=== PATIENT | male | born 1960 | race Caucasian/White ===

== ENCOUNTER → 2017-12-17 | Outpatient (CLI) | payer BC | END | disposition home or self-care (01) | LOC: C.PATHSPEC 16:51 | PROVIDERS: ATTEND Physician Assistant | DX: L82.1 Other seborrheic keratosis (principal); L57.0 Actinic keratosis ==

== ENCOUNTER 2019-03-26 04:59 | Inpatient (IN) ==
--- NOTE | 2019-03-08 09:36 | PAT Medication Instructions ---
Medication Instructions Date of Service March 08, 2019 Home Medications atorvastatin 20 mg tablet 20 mg PO QAM lisinopril 20 mg PO QAM DO NOT take the morning of surgery lisinopril 20 mg PO QAM Take morning of surgery With a small sip of water, OTHERWISE NOTHING TO EAT OR DRINK AFTER MIDNIGHT: atorvastatin 20 mg tablet 20 mg PO QAM Other Notes If you have any questions please call us at [phone] or [phone] or [phone] or [phone]
--- NOTE | 2019-03-08 13:08 | Anesthesiology Consultation ---
Date of Service March 08, 2019 Assessment & Plan (1) Encounter for pre-operative examination: Chart Review Chart Review: Acceptable Risk for Surgery and Patient seen in Pre Admission Testing Teaching & Discussion Pre-Anesthesia Teaching/Discussion Notes: Instructed NPO after midnight before surgery,except medications with 15 cc of water. Medication instructions provided according to the PAT guidelines. History Surgery Operation Date: 03/26/19 12:50 Proposed Procedures p Left Anterior Total Hip Arthroplasty - Jonas Fry, Height/Weight Height: 5 ft 6 in Weight: 106.7 kg Allergies Allergy/AdvReac Type Severity Reaction Status Date / Time No Known Allergies Allergy Unverified 03/08/19 07:04 Medications Home Medications Medication Instructions Recorded Confirmed Last Taken atorvastatin 20 mg tablet 20 mg PO QAM #1 tab 03/05/19 03/08/19 Unknown lisinopril 20 mg PO QAM 03/08/19 03/08/19 Unknown Past Medical History Medical History Hyperlipidemia Dermatofibroma BCC (basal cell carcinoma) S/P MOH'S SURGERY Obesity Osteoarthritis HTN (hypertension) Exercise / Class Metabolic Activity III < 4 Walking/Shop/Light housework Past Family History Family History Father Family history of diabetes mellitus Past Surgical History Surgical History History of cardiac cath 10+ YEARS AGO= NO STENTS History of tonsillectomy S/P Mohs surgery for basal cell carcinoma Past Anesthesia History No Hx of Anesthesia Complications and No Family Hx of Anesthesia Complications History of PONV No Hx of PONV and No Hx of Motion Sickness Social History Smoking Status: Never smoker Do You Dip or Chew Tobacco: No Hx Alcohol Use: Yes Alcohol type: beer alcohol intake frequency: a few times a week Hx Substance Use: No substance use type: does not use Review of Systems Patient denies chest pain, shortness of breath, reflux, cough, wheezing, palpita tions. Physical Exam Vital Signs VITALS BP 124/87 P 92 TEMP 97.4 SP02 94%RA RESP 16 PHYSICAL Full neck and c-spine range of motion. Full TMJ range of motion. TMD 3 finger breaths Mallampati Score 3 Dentition: intact, lower front permanent bridge, several crowns Lungs: clear throughout to auscultation Cardiac: regular rate and rhythm, no murmurs noted Spine: normal Carotid arteries: negative bruit Extremities: no edema Testing Laboratory Results 03/08/19 13:26 03/08/19 13:26 03/08/19 03/08/19 13:26 13:26 PT 9.9 INR 1.0 APTT 28.0 Blood Type A Positive Antibody Screen NEGATIVE Electrocardiogram Date: 03/08/19 SR with marked sinus arrhythmia at 77bpm. iRBBB. NS TWA. TWI no longer evident in anterior leads per cardio. Chest X-Ray Date: 03/08/19 Findings: + NAD Cardiac Catheterization Date: 08/20/15 No significant disease of the [place] coronary arteries. EF 76%. No contraction abnormalities noted on left vetriculogram. No aortic stenosis.
--- NOTE | 2019-03-08 13:46 | XRay Report ---
XR chest Pre-admission PA/Lat CLINICAL HISTORY: pat preoperative evaluation COMPARISON STUDY: No previous studies for comparison. FINDINGS: The bones soft tissues and hemidiaphragms are normal. The cardiomediastinal silhouette is n ormal. The lungs are clear. The pulmonary vasculature is normal. IMPRESSION: Negative chest. The above report was generated using voice recognition software. It may contain grammatical, syntax or spelling errors. Electronically signed by: Jarret Martinez M.D. 03/08/2019 1:45 PM
[2019-03-08 16:30] LABS: Basophils # (auto) 0.03 K/uL (0-0.2); Basophils % (auto) 0.3 %; Eosinophils # (auto) 0.15 K/uL (0-0.5); Eosinophils % (auto) 1.5 %; Hematocrit (blood only) 41.2 % (42-52); Hemoglobin 14.7 g/dL (14.0-18.0); Immature Granulocytes # (auto) 0.05 K/uL (0.00-0.02); Immature Granulocytes % (auto) 0.5 %; Lymphocytes # (auto) 2.55 K/uL (1.2-3.4); Lymphocytes % (auto) 25.8 %; Mean Corpuscular Hgb Conc 35.7 g/dL (32-36); Mean Corpuscular Volume 87.3 fL (80-100); Mean Platelet Volume 8.9 fL (7.4-10.4); Monocytes # (auto) 0.85 K/uL (0.11-0.59); Monocytes % (auto) 8.6 %; Neutrophils # (auto) 6.26 K/uL (1.4-6.5); Neutrophils % (auto) 63.3 %; Platelet Count 318 K/uL (130-400); RDW Coefficient of Variation 13.5 % (11.5-14.5); RDW Standard Deviation 43.6 fL (36.4-46.3); Red Blood Count 4.72 M/uL (4.7-6.1); White Blood Count 9.89 K/uL (4.8-10.8)
[2019-03-08 16:39] LABS: BUN Creatinine Ratio 14.8 (10-20); Calcium 9.3 mg/dl (8.5-10.1); Creatinine Clr Calc Pharmacy 82.5 ml/min; Est GFR (African American) 85.1; Est GFR (Non-African American) 73.4; Potassium 3.9 mmol/L (3.5-5.1)
[2019-03-08 16:43] LABS: Prothrombin Time 9.9 Seconds (9.0-12.0)
--- NOTE | 2019-03-24 07:28 | History & Physical Report ---
Date of Service March 24, 2019 Assessment & Plan (1) Osteoarthritis of left hip: We will proceed with a left anterior total hip arthroplasty. Postoperatively he will be started on aspirin for DVT prophylaxis. We will keep him overnight in the hospital for postoperative medical management. He plans to use energy physical therapy upon discharge. Present on Admission?: Yes History of Present Illness Chief Complaint: Primary osteoarthritis of the left hip Primary Care Provider: MARIKA Blanchard Luciano is a pleasant 59-year-old male with a several year history of increasing left hip and groin pain. Over the past 4 months it is gotten considerably worse. He has difficulty bending over at times and putting on shoes and going up and down stairs. X-rays and clinical examination have been diagnostic for primary osteoarthritis of the left hip. After failing conservative treatment, he has elected proceed with a left anterior total hip arthroplasty. Allergies Allergy/AdvReac Type Severity Reaction Status Date / Time No Known Allergies Allergy Unverified 03/08/19 07:04 Home Medications Home Medications Medication Instructions Recorded Confirmed Type atorvastatin 20 mg tablet 20 mg PO QAM #1 tab 03/05/19 03/08/19 History lisinopril 20 mg PO QAM 03/08/19 03/08/19 History Past Med/Surg History Medical History Hyperlipidemia Dermatofibroma BCC (basal cell carcinoma) S/P MOH'S SURGERY Obesity Osteoarthritis HTN (hypertension) Surgical History History of cardiac cath 10+ YEARS AGO= NO STENTS History of tonsillectomy S/P Mohs surgery for basal cell carcinoma Family History Father Family history of diabetes mellitus Social History Preferred Language: German Communication Ability: Effective Wel[employer] Tungsten Arc Required: No Beliefs That Will Affect Care: None marital status: Current Living Situation: Family current occupational status: employed Other Information That Helps Us Care for You: No Feels Safe at Home: Yes Safety Concerns: Feels Safe At This Time Smoking Status: Never smoker Do You Dip or Chew Tobacco: No Second Hand Exposure: No Tobacco Cessation Education Requested by Patient: No Hx Alcohol Use: Yes Alcohol type: beer Hx Substance Use: No Review of Systems All systems reviewed & are unremarkable except as noted in HPI & below Physical Exam Constitutional: WD/WN, vitals as above Eyes: PERRL, conjunctivae normal, anicteric sclerae ENMT: external ear and nose normal, oropharynx normal Neck: trachea midline, no thyromegaly Respiratory: normal respiratory effort Cardiovascular: RRR, no murmur, no edema Gastrointestinal (Abdomen): normal bowel sounds, soft, nontender, no hepatosplenomegaly Musculoskeletal: Physical examination of the left hip reveals decreased range of motion with flexion, internal and external rotation. There is significant groin pain with forced internal rotation of the hip his leg lengths are essentially equal. Psychiatric: A+Ox3, euthymic affect Results & Data Diagnostic Findings Radiographs of the left hip and pelvis demonstrate advanced osteoarthritis with joint space narrowing osteophyte formation and [id number] articulation.
[2019-03-26] MEDS ORDERED: GABAPENTIN 300 MG x 2 PO SCH (06:00)
[2019-03-26] MEDS ORDERED: ROPIVACAINE 0.5% HCL/PF 150 MG, BUPIVACAINE 0.5% MPF 30 ML, EPINEPHrine 30MG/30ML (OR U... INFIL SCH (06:00)
[2019-03-26] MEDS ORDERED: LR 500ML BOLUS, THEN 15ML/HR IV SCH (06:00)
[2019-03-26] MEDS ORDERED: LR 60ML/HR IV SCH (06:00)
[2019-03-26] MEDS ORDERED: TRANEXAMIC ACID 1,000 MG **IV Pre-op IV SCH (06:00)
[2019-03-26] MEDS ORDERED: ACETAMINOPHEN 500 MG TAB PO SCH (06:00)
[2019-03-26] MEDS ORDERED: FAMOTIDINE 20 MG TAB PO SCH (06:00)
[2019-03-26] MEDS ORDERED: CEFAZOLIN 2000MG 2,000 MG/15 ML SYR IV SCH (06:00)
[2019-03-26] MEDS ORDERED: ORTHO JOINT ANESTHETIC ONE (06:27)
[2019-03-26] MEDS ORDERED: POVIDONE-IODINE OP SOLN 30 ML BTL ONE (06:28)
[2019-03-26] MEDS ORDERED: TRANEXAMIC ACID 1,000 MG **IV Intra-op IV SCH (06:30)
[2019-03-26] MEDS ORDERED: BUPIVACAINE 0.5 % 5 MG/1 ML PF 10ML VIAL ONE (06:31)
[2019-03-26] MEDS ORDERED: fentaNYL citrate 100 MCG/2 ML VIAL ONE (06:37)
[2019-03-26] MEDS ORDERED: MIDAZOLAM HCL 1 MG/ML 2ML VIAL ONE (06:37)
--- NOTE | 2019-03-26 06:40 | History & Physical Bridge Note ---
Date of Service March 26, 2019 History & Physical Bridge Note I have examined the patient, reviewed the History & Physical and in the interval since the performance of the History & Physical I have noted the following changes of clinical significance: no changes noted
[2019-03-26] MEDS ORDERED: ePHEDrine sulfate 50 MG/ML AMP IV PRN (07:26)
[2019-03-26] MEDS ORDERED: ATROPINE SULFATE 0.1 MG/ML 10ML SYR IV PRN (07:26)
[2019-03-26] MEDS ORDERED: HYDROmorphone INJ 1 MG/ML SYRINGE IV PRN (07:26)
[2019-03-26] MEDS ORDERED: PHENYLEPHRINE 100MCG/ML 5ML SYR ONE (07:36)
[2019-03-26] MEDS ORDERED: ePHEDrine sulfate 50 MG/ML SYR ONE (07:36)
[2019-03-26] MEDS ORDERED: LIDOCAINE HCL 2% 2 ML VIAL/AMP(20MG/ML) INFIL ONE (07:36)
[2019-03-26] MEDS ORDERED: PROPOFOL IV EMULSION 10 MG/ML 20 ML VIAL IV ONE ×3 (07:36→08:41)
--- NOTE | 2019-03-26 08:38 | Operative Report ---
Post Operative Report Pre & Post Diagnosis Operation Date: 03/26/19 07:00 Pre-Op Diagnosis: LEFT HIP DEGENERATIVE JOINT DISEASE Post-Op Diagnosis: LEFT HIP DEGENERATIVE JOINT DISEASE Procedure Operation Date: 03/26/19 07:00 Actual Procedures p Left Anterior Total Hip Arthroplasty(Left) - Jonas Fry DO Surgeon Jonas Fry DO Fire Adjuster Jonas Richards PAC Estimated Blood Loss 250 Findings Consistent with Post-Op Diagnosis Specimens Left femoral head Complications none Disposition Disposition: Recovery Room Indications Luciano is a pleasant 59-year-old male who presented my office with complaints of chronic increasing left hip and groin pain. X-rays and clinical examination were diagnostic for primary osteoarthritis of the left hip. After failing conservative treatment, he elected proceed with a left anterior total hip arthroplasty. Description of Procedure Implants used Biomet Taperloc total hip arthroplasty system with a size 11 standard offset Taperloc stem, a 56 mm G7 cup with a 25mm screw, an E1 polyethylene liner, a 40 mm ceramic head with a -3 neck. Patient arrived at the hospital for the above procedure. They were seen in the preoperative holding area and the operative extremity was identified and signed. They were given a spinal anesthetic. They were given a preoperative antibiotic and TXA. They were taken back To the operating room and laid on the table in the supine position. The leg was brought out through a Puristst leg positioner. The hip was then prepped and draped in sterile fashion. A timeout was done and the patient in upper extremities properly identified. An anterior approach was used. Dissection was taken down through the fascia and the tensor muscle belly was retracted laterally and the rectus was retracted medially. The circumflex vessels were identified and ligated. The capsule was then incised and tagged for later repair. The femoral neck was then cut and the femoral head was removed. The acetabulum was exposed. Time was spent doing a complete circumferential labral release. Sequential reaming of the acetabulum up to a size 55 reamer was done. Final reamings were done under fluoroscopy to ensure appropriate version. A Biomet 56 mm G7 cup was then impacted into place. A single 25 mm screw was placed. The E1 polyethylene liner was then snapped into place. Surrounding soft tissues were then injected with 100 cc of an orthopedic pain control cocktail. The proximal femur was then exposed. Sequential broaching up to a size 11 broach was done. Off that broach a size 40 head with a -3 neck was trialed. The hip was reduced and fluoroscopic images showed anatomic alignment of the implants in acceptable length. The broach was removed. The final size 11 standard offset Taperloc stem was then impacted into place. A ceramic 40 mm head with a -3 neck was then impacted into place in the hip was reduced. Final fluoroscopic images showed anatomic reduction of the hip. The capsule was then closed with #1 Vicryl suture. A dilute betadyne lavage was then done for 3 minutes. The joint was then irrigated with normal saline solution. The fascia was closed with #1 PDS suture. Skin was closed with 2-0 Vicryl, nicola, and a Elda VAC dressing. The patient was then transferred to a hospital bed and taken to the post anesthesia care unit in stable condition. They tolerated the procedure well. I attest to the content of the Intraoperative Record and any orders documented therein. Any exceptions are noted below.
--- NOTE | 2019-03-26 09:07 | Fluoroscopy Report ---
FL hip LT 1V CLINICAL HISTORY: LEFT ANTERIOR HIP COMPARISON STUDY: Pelvis and hips 02/04/2019. FLUOROSCOPY TIME: 40 seconds. FINDINGS: 3 fluoroscopic spot images demonstrate a left total hip arthroplasty. The hardware appears intact. No fracture or dislocation. IMPRESSION: Fluoroscopy provided for left total hip arthroplasty. Electronically signed by: Karl Ac M.D. 03/26/2019 9:06 AM
--- NOTE | 2019-03-26 09:21 | XRay Report ---
AP PELVIS, CROSSTABLE LATERAL LEFT HIP History: Left total hip arthroplasty. Degenerative arthritis. Postop. FINDINGS: The patient is status post a left total hip arthroplasty. The hardware is intact. No fractu re or dislocation. Skin nicola are in place. IMPRESSION: Left total hip arthroplasty. No evidence for hardware complication. Electronically signed by: Karl Ac M.D. 03/26/2019 9:20 AM
[2019-03-26] MEDS ORDERED: MAGNESIUM HYDROXIDE SUSP 30 ML UDC PO PRN (09:37)
[2019-03-26] MEDS ORDERED: BISACODYL 10 MG SUPP PR PRN (09:37)
[2019-03-26] MEDS ORDERED: NALOXONE HCL 0.4 MG/1 ML VIAL/CARP IV PRN (09:37)
[2019-03-26] MEDS ORDERED: ONDANSETRON INJ 2 MG/ML 2 ML VIAL IV PRN (09:37)
[2019-03-26] MEDS ORDERED: METOCLOPRAMIDE HCL INJ 5 MG/ML 2 ML VIAL IV PRN (09:37)
[2019-03-26] MEDS ORDERED: HYDROmorphone INJ 0.5 MG/0.5 ML SYR IV PRN (09:37)
[2019-03-26] MEDS: OXYCODONE HCL IR 5 MG TAB (IMMEDIATE RELEASE) PO PRN ×3 (09:56→19:34)
[2019-03-26] MEDS: SODIUM CHLORIDE 0.9% 1000ML 1,000 ML IV SCH ×2 (10:43→19:31)
[2019-03-26] MEDS ORDERED: ATORVASTATIN 20 MG TAB PO SCH (11:00)
[2019-03-26] MEDS: DOCUSATE SODIUM 100 MG CAP PO SCH ×2 (11:15→20:59)
[2019-03-26] MEDS: ASPIRIN 81 MG ECTAB PO SCH ×2 (11:16→20:59)
[2019-03-26] MEDS: MULTIVITAMIN TAB PO SCH (11:16)
[2019-03-26] MEDS: LISINOPRIL 20 MG TAB PO SCH (11:18)
[2019-03-26] MEDS: KETOROLAC 30 MG/ML VIAL IV SCH ×2 (11:18→17:04)
[2019-03-26] MEDS: ACETAMINOPHEN 500 MG TAB PO SCH ×2 (13:35→21:00)
--- NOTE | 2019-03-26 14:08 | Anesthesiology Progress Note ---
Date of Service March 26, 2019 Anesthesia Post Procedure Vital Signs Vital Signs: Temp Pulse Pulse Resp BP Pulse Ox 03/26/19 12:30 87 18 111/72 95 03/26/19 11:26 79 18 95 03/26/19 11:17 118/73 03/26/19 10:32 85 18 111/71 95 03/26/19 09:59 36.5 C 69 18 107/68 96 03/26/19 09:30 36.6 C 65 16 100/63 95 03/26/19 09:10 37.1 C 65 19 105/73 96 03/26/19 09:00 78 19 97/72 L 98 03/26/19 08:51 36.2 C L 82 19 110/60 98 03/26/19 05:28 37 C 91 H 20 133/85 94 Pain Intensity Left Hip: Pain Intensity: 1 Transfer of Care Handoff Completed per policy Notes Mental Status: alert / awake / arousable Patient Amnestic to Procedure: Yes Nausea / Vomiting: adequately controlled Pain: adequately controlled Airway Patency, RR, SpO2: stable & adequate BP & HR: stable & adequate Hydration State: stable & adequate Anesthetic Complications: no major complications apparent and Pt Satisfied with anesthetic care
[2019-03-26] MEDS: CEFAZOLIN 2000MG 2,000 MG/15 ML SYR IV SCH ×2 (14:33→22:03)
[2019-03-26] MEDS ORDERED: SENNA 8.6 MG TAB PO SCH (21:00)
[2019-03-27] MEDS: KETOROLAC 30 MG/ML VIAL IV SCH ×3 (00:11→12:50)
[2019-03-27] MEDS: SODIUM CHLORIDE 0.9% 1000ML 1,000 ML IV SCH (06:00)
[2019-03-27] MEDS: ACETAMINOPHEN 500 MG TAB PO SCH ×2 (06:01→12:51)
[2019-03-27 06:13] LABS: Basophils # (auto) 0.01 K/uL (0-0.2); Basophils % (auto) 0.1 %; Eosinophils # (auto) 0.08 K/uL (0-0.5); Eosinophils % (auto) 0.6 %; Hemoglobin 11.1 g/dL (14.0-18.0); Immature Granulocytes # (auto) 0.04 K/uL (0.00-0.02); Immature Granulocytes % (auto) 0.3 %; Lymphocytes # (auto) 2.17 K/uL (1.2-3.4); Lymphocytes % (auto) 17.5 %; Mean Corpuscular Hgb Conc 33.6 g/dL (32-36); Mean Corpuscular Volume 88.7 fL (80-100); Mean Platelet Volume 8.8 fL (7.4-10.4); Monocytes # (auto) 1.27 K/uL (0.11-0.59); Monocytes % (auto) 10.2 %; Neutrophils # (auto) 8.84 K/uL (1.4-6.5); Neutrophils % (auto) 71.3 %; Platelet Count 238 K/uL (130-400); RDW Coefficient of Variation 13.4 % (11.5-14.5); RDW Standard Deviation 43.3 fL (36.4-46.3); Red Blood Count 3.72 M/uL (4.7-6.1); White Blood Count 12.41 K/uL (4.8-10.8)
[2019-03-27 07:11] LABS: BUN Creatinine Ratio 14.7 (10-20); Calcium 8.1 mg/dl (8.5-10.1); Creatinine Clr Calc Pharmacy 82.6 ml/min; Est GFR (Non-African American) 75.9
[2019-03-27] MEDS ORDERED: ATORVASTATIN 20 MG TAB PO SCH (09:00)
[2019-03-27] MEDS: MULTIVITAMIN TAB PO SCH (09:20)
[2019-03-27] MEDS: LISINOPRIL 20 MG TAB PO SCH (09:20)
[2019-03-27] MEDS: DOCUSATE SODIUM 100 MG CAP PO SCH (09:20)
[2019-03-27] MEDS: ASPIRIN 81 MG ECTAB PO SCH (09:20)
--- NOTE | 2019-03-27 09:20 | Orthopedic Progress Note ---
Date of Service March 27, 2019 Assessment & Plan (1) Osteoarthritis of left hip: Overall is doing very well. Some a little soreness in the hip but is not too bad. He is been ambulating around the room already. He will be seen by physical therapy this morning for ambulation. If he continues to do well he can be discharged home today. He is on aspirin for DVT prophylaxis. He has [facility] physical therapy set up for him at home. He can follow-up with orthopedics in 2 weeks. Present on Admission?: Yes Subjective Luciano was seen and examined at bedside this morning. Overall is doing very well. He is having a little bit of soreness in his left hip. He has a little bit of difficulty flexing his hip but he can extend his knee and move his ankle. He is been ambulating around the room. He has no other complaints. Physical Exam Musculoskeletal: On physical examination of the left hip, the Elda VAC dressing is to suction. His leg lengths are equal. He is active dorsiflexion and plantarflexion of his left ankle. He can actively extend his knee. Results & Data Vital Signs (Past 12 Hours) Vital Signs Temp Pulse Resp BP Pulse Ox 03/27/19 07:52 36.6 C 65 16 112/70 96 03/27/19 04:10 36.5 C 63 16 109/73 98 03/26/19 23:15 36.4 C L 71 16 128/71 95 Laboratory Results H & H 03/08/19 03/27/19 Range/Units 13:26 05:21 Hgb 14.7 11.1 L (14.0-18.0) g/dL Hct 41.2 L 33.0 L (42-52) % Coagulation 03/08/19 Range/Units 13:26 INR 1.0 (0.9-1.1) Diagnostic Findings Postoperative x-rays of the left hip show the prosthesis to be in anatomic alignment without any evidence of fracture, dislocation, or loosening.
--- NOTE | 2019-03-27 09:23 | Discharge Summary ---
Date of Service March 27, 2019 Admission HPI Per Admitting Provider Luciano is a pleasant 59-year-old male with a several year history of increasing left hip and groin pain. Over the past 4 months it is gotten considerably worse. He has difficulty bending over at times and putting on shoes and going up and down stairs. X-rays and clinical examination have been diagnostic for primary osteoarthritis of the left hip. After failing conservative treatment, he has elected proceed with a left anterior total hip arthroplasty. Specialty Data Orthopedic H & H 03/08/19 03/27/19 Range/Units 13:26 05:21 Hgb 14.7 11.1 L (14.0-18.0) g/dL Hct 41.2 L 33.0 L (42-52) % Coagulation 03/08/19 Range/Units 13:26 INR 1.0 (0.9-1.1) Discharge Data Consultations 03/27/19 08:00 Consult Case Management - Discharge Planning Routine Procedures Performed Operation Date: 03/26/19 07:00 Actual Procedures p Left Anterior Total Hip Arthroplasty(Left) - Jonas Fry DO Hospital Course (1) Osteoarthritis of left hip: On March 26, 2019 Matthew arrived at [facility] and underwent a left anterior total hip arthroplasty without complication. He had a spinal anesthetic. Postoperatively he was started on aspirin for DVT prophylaxis and discharged to general orthopedic floors. His hospital course was uneventful. On postop day #1 his H&H was stable and his pain was well controlled. He was able to ambulate well with physical therapy. He was on aspirin for DVT prophylaxis. He was then discharged home with [facility]. He will follow-up with orthopedics in 2 weeks. Discharge Instructions Home Medications Medication Instructions Recorded Confirmed atorvastatin 20 mg tablet 20 mg PO QAM #1 tab 03/05/19 03/26/19 lisinopril 20 mg PO QAM 03/08/19 03/26/19 Previous Rx's Medication Instructions Recorded aspirin [Ecotrin Low Strength] 81 mg PO BID #84 tab 03/27/19 oxycodone 5 - 10 mg PO Q4H PRN #40 tab 03/27/19 03/08/19 Range/Units 13:26 INR 1.0 (0.9-1.1)
--- NOTE | 2019-03-27 09:57 | Anesthesiology Progress Note ---
Date of Service March 27, 2019 Anesthesia Post Procedure Vital Signs Vital Signs: Temp Pulse Resp BP Pulse Ox 03/27/19 07:52 36.6 C 65 16 112/70 96 03/27/19 04:10 36.5 C 63 16 109/73 98 03/26/19 23:15 36.4 C L 71 16 128/71 95 03/26/19 19:18 36.5 C 71 17 108/71 94 03/26/19 15:12 36.8 C 63 16 93/62 L 95 03/26/19 12:30 87 18 111/72 95 03/26/19 11:26 79 18 95 03/26/19 11:17 118/73 03/26/19 10:32 85 18 111/71 95 03/26/19 09:59 36.5 C 69 18 107/68 96 Pain Intensity Left Hip: Pain Intensity: 1 Notes Mental Status: alert / awake / arousable and participated in evaluation Nausea / Vomiting: adequately controlled Pain: adequately controlled Airway Patency, RR, SpO2: stable & adequate BP & HR: stable & adequate Hydration State: stable & adequate Neuraxial Anesthesia: was administered and sensory block resolved Anesthetic Complications: no major complications apparent and Pt Satisfied with anesthetic care
== END 2019-03-27 15:01 | disposition home or self-care (01) | DRG 470 ==
LOC: ASU 04:59 → 3E 08:52